=== PATIENT | female | born 1950 | race Caucasian/White ===

== ENCOUNTER 2021-04-29 03:55 | Observation (INO) ==
[2021-04-29] MEDS ORDERED: Naloxone 0.4 MG/ML INJ IVP PRN (10:43)
[2021-04-29] MEDS ORDERED: Pantoprazole 40 MG VIAL IVP SCH (10:45)
[2021-04-29 13:19] LABS: Basophils # 0.1 K/mcL (0.0-0.2); Basophils % 0.7 %; Eosinophils # 0.2 K/mcL (0.0-0.6); Eosinophils % 2.8 %; Hematocrit 38.5 % (35.3-44.9); Hemoglobin 12.5 g/dL (11.5-15.4); Immature Granulocytes % 0.5 % (0-4); Lymphocytes # 1.8 K/mcL (0.6-4.6); Lymphocytes % 21.3 %; Mean Corpuscular HGB Conc 32.5 g/dL (31.6-35.5); Mean Corpuscular Hemoglobin 32.6 pg (28.0-33.3); Mean Corpuscular Volume 100.5 fL (83.0-100.0); Monocytes # 0.6 K/mcL (0.0-1.3); Monocytes % 7.2 %; Neutrophils # 5.8 K/mcL (1.6-8.9); Platelet Count 343 K/mcL (140-400); Red Blood Count 3.83 M/mcL (3.82-4.97); Red Cell Distribution Width 12.8 % (11.5-14.5); Segmented Neutrophils % 67.5 %; White Blood Count 8.5 K/mcL (4.3-11.1)
[2021-04-29 13:26] LABS: INR 1.2; Prothrombin Time 14.3 Seconds (9.4-12.1)
[2021-04-29 13:48] LABS: Alanine Aminotransferase 8 Units/L (7-52); Albumin 3.9 g/dL (3.5-5.7); Albumin/Globulin Ratio 1.7 (1.1-2.2); Alkaline Phosphatase 53 Units/L (34-104); Aspartate Amino Transferase 11 Units/L (13-39); BUN/Creatinine Ratio 33 (6-26); Bilirubin,Total 0.3 mg/dL (0.3-1.0); Blood Urea Nitrogen 19 mg/dL (8-23); Calcium 8.5 mg/dL (8.6-10.3); Carbon Dioxide 24 mEq/L (23-29); Chloride 110 mEq/L (98-107); Globulin 2.3 g/dL (2.4-3.5); Glucose 91 mg/dL (70-105); Osmolality,Calculated 294 (280-300); Phosphorous 1.4 mg/dL (2.7-4.5); Potassium 3.2 mEq/L (3.5-5.1); Sodium 141 mEq/L (136-145); Total Protein 6.2 g/dL (6.4-8.9); eGFR For African Americans > 60 (> 60); eGFR For Non-African Americans > 60 (> 60)
[2021-04-29] MEDS ORDERED: QUEtiapine Fumarate 25 MG TABLET PO PRN (14:45)
[2021-04-29] MEDS ORDERED: Haloperidol Lactate 5 MG/ML VIAL IM PRN (14:45)
[2021-04-29] MEDS: Sucralfate 1 GM TABLET PO SCH ×2 (16:33→21:40)
[2021-04-29] MEDS ORDERED: Metoprolol XL (24 HR) Succ 50 MG TAB.ER.24H PO SCH (18:00)
[2021-04-29] MEDS ORDERED: NON-FORMULARY MEDICATION 1 EACH EACH (Pantoprazole Sodium [Protonix] 40 MG Tablet.Dr) PO SCH (21:00)
[2021-04-29] MEDS: Pantoprazole 40 MG VIAL IVP SCH (21:43)
[2021-04-30 06:30] LABS: Magnesium 2.1 mg/dL (1.6-2.6)
[2021-04-30 06:32] LABS: BUN/Creatinine Ratio 23 (6-26); Blood Urea Nitrogen 12 mg/dL (8-23); Calcium 8.7 mg/dL (8.6-10.3); Carbon Dioxide 22 mEq/L (23-29); Chloride 112 mEq/L (98-107); Glucose 93 mg/dL (70-105); Osmolality,Calculated 291 (280-300); Potassium 3.9 mEq/L (3.5-5.1); Sodium 141 mEq/L (136-145); eGFR For African Americans > 60 (> 60); eGFR For Non-African Americans > 60 (> 60)
[2021-04-30] MEDS: Sucralfate 1 GM TABLET PO SCH ×3 (07:41→17:21)
[2021-04-30] MEDS: Pantoprazole 40 MG VIAL IVP SCH (07:42)
[2021-04-30] MEDS ORDERED: Aspirin Enteric Coated 81 MG Tablet PO SCH (09:00)
[2021-04-30] MEDS ORDERED: amLODIPine 5 MG TABLET PO SCH (09:00)
[2021-04-30 14:17] VITALS: BP 133/75; PULSE 75; TEMP 98.2; O2SAT 99
[2021-04-30] MEDS ORDERED: *HR* Propofol 200 MG/20 ML VIAL IVP ONE (18:31)
[2021-04-30] MEDS ORDERED: Lidocaine -MPF 2% 5 ML VIAL SQ ONE (18:31)
== END 2021-04-30 18:32 | disposition home or self-care (01) ==
LOC: 3ANU → SUATTDRO 09:04
PROVIDERS: ADMIT Family Medicine; ATTEND General Practice
PROC: ENDOEBX (2021-04-30 15:20)

== ENCOUNTER 2021-05-17 13:13 | Observation (INO) ==
[2021-05-17] MEDS ORDERED: Naloxone 0.4 MG/ML INJ IVP PRN (18:39)
[2021-05-17] MEDS ORDERED: Ondansetron 4 MG/2 ML VIAL IVP PRN (18:39)
[2021-05-17 19:21] LABS: Basophils # 0.1 K/mcL (0.0-0.2); Basophils % 0.6 %; Eosinophils # 0.1 K/mcL (0.0-0.6); Eosinophils % 0.9 %; Hematocrit 41.9 % (35.3-44.9); Hemoglobin 13.5 g/dL (11.5-15.4); Immature Granulocytes % 0.7 % (0-4); Lymphocytes # 2.2 K/mcL (0.6-4.6); Mean Corpuscular HGB Conc 32.2 g/dL (31.6-35.5); Mean Corpuscular Hemoglobin 32.8 pg (28.0-33.3); Mean Corpuscular Volume 101.7 fL (83.0-100.0); Monocytes # 0.7 K/mcL (0.0-1.3); Monocytes % 7.6 %; Neutrophils # 6.5 K/mcL (1.6-8.9); Platelet Count 413 K/mcL (140-400); Red Blood Count 4.12 M/mcL (3.82-4.97); Red Cell Distribution Width 13.3 % (11.5-14.5); Segmented Neutrophils % 67.2 %; White Blood Count 9.7 K/mcL (4.3-11.1)
[2021-05-17 19:37] LABS: INR 1.1; Prothrombin Time 12.4 Seconds (9.4-12.1)
[2021-05-17 19:44] LABS: Alanine Aminotransferase 16 Units/L (7-52); Albumin 4.4 g/dL (3.5-5.7); Albumin/Globulin Ratio 1.5 (1.1-2.2); Alkaline Phosphatase 59 Units/L (34-104); Aspartate Amino Transferase 18 Units/L (13-39); BUN/Creatinine Ratio 26 (6-26); Bilirubin,Total 0.3 mg/dL (0.3-1.0); Blood Urea Nitrogen 19 mg/dL (8-23); Carbon Dioxide 22 mEq/L (23-29); Chloride 110 mEq/L (98-107); Globulin 2.9 g/dL (2.4-3.5); Glucose 89 mg/dL (70-105); Lipase 21 Units/L (11-82); Osmolality,Calculated 292 (280-300); Potassium 3.3 mEq/L (3.5-5.1); Sodium 140 mEq/L (136-145); Total Protein 7.3 g/dL (6.4-8.9); eGFR For African Americans > 60 (> 60); eGFR For Non-African Americans > 60 (> 60)
[2021-05-17] MEDS: 0.9 % Sodium Chloride 1,000 ML IVC SCH (23:00)
[2021-05-17] MEDS: MetroNIDAZOLE 500 MG/100 ML 500 MG/100 ML BAG IVPB SCH (23:52)
[2021-05-18] MEDS: Pantoprazole 40 MG VIAL IVP SCH ×2 (06:14→18:00)
[2021-05-18 08:03] LABS: Bilirubin,Urine Negative (Negative); Blood,Urine Moderate (Negative); Clarity,Urine Clear (Clear); Color,Urine Colorless (Yellow); Glucose,Urine (UA) Normal (Normal); Ketones,Urine Negative (Negative); Leukocyte Esterase,Urine Negative (Negative); Mucus,Urine Few per lpf (None-Few); Nitrite,Urine Negative (Negative); Protein,Urine Negative (Neg-Trace); RBC,Urine 0-3 per hpf (0-3); Specific Gravity,Urine 1.011 (1.010-1.025); Urobilinogen,Urine Normal (Normal); WBC,Urine 0-3 per hpf (0-3)
[2021-05-18] MEDS: Nicotine 21 MG PATCH.TD24 TD SCH (09:16)
[2021-05-18] MEDS: MetroNIDAZOLE 500 MG/100 ML 500 MG/100 ML BAG IVPB SCH ×2 (09:16→18:01)
[2021-05-18 09:41] LABS: Basophils # 0.1 K/mcL (0.0-0.2); Basophils % 0.8 %; Eosinophils # 0.1 K/mcL (0.0-0.6); Eosinophils % 2.3 %; Hematocrit 38.3 % (35.3-44.9); Hemoglobin 12.5 g/dL (11.5-15.4); Immature Granulocytes % 0.8 % (0-4); Lymphocytes # 1.3 K/mcL (0.6-4.6); Lymphocytes % 21.4 %; Mean Corpuscular HGB Conc 32.6 g/dL (31.6-35.5); Mean Corpuscular Hemoglobin 32.5 pg (28.0-33.3); Mean Corpuscular Volume 99.5 fL (83.0-100.0); Monocytes # 0.4 K/mcL (0.0-1.3); Monocytes % 6.3 %; Neutrophils # 4.1 K/mcL (1.6-8.9); Platelet Count 369 K/mcL (140-400); Red Blood Count 3.85 M/mcL (3.82-4.97); Red Cell Distribution Width 13.2 % (11.5-14.5); Segmented Neutrophils % 68.4 %
[2021-05-18] MEDS ORDERED: Morphine Sulfate 2 MG/ML SYRINGE IVP ONE (09:49)
[2021-05-18 10:00] LABS: BUN/Creatinine Ratio 22 (6-26); Blood Urea Nitrogen 11 mg/dL (8-23); Calcium 8.7 mg/dL (8.6-10.3); Carbon Dioxide 21 mEq/L (23-29); Chloride 112 mEq/L (98-107); Glucose 98 mg/dL (70-105); Osmolality,Calculated 291 (280-300); Potassium 3.4 mEq/L (3.5-5.1); Sodium 141 mEq/L (136-145); eGFR For African Americans > 60 (> 60); eGFR For Non-African Americans > 60 (> 60)
[2021-05-18] MEDS ORDERED: MOM Conc 10 ML UD.LIQ PO ONE (10:04)
[2021-05-18] MEDS ORDERED: *HR* LORazepam 2 MG/ML VIAL IVP ONE (11:45)
[2021-05-18 12:24] LABS: Thyroid Stimulating Hormone 0.484 mcIU/mL (0.340-5.600)
[2021-05-18] MEDS: *HR* LORazepam 2 MG/ML VIAL IVP PRN ×2 (12:46→21:52)
[2021-05-18] MEDS: Morphine Sulfate 2 MG/ML SYRINGE IVP PRN ×2 (12:46→18:25)
[2021-05-18] MEDS: 0.9 % Sodium Chloride 1,000 ML IVC SCH ×2 (12:50→21:52)
[2021-05-18 12:55] LABS: Troponin I < 0.03 ng/mL (< 0.04)
[2021-05-18] MEDS: Sucralfate 1 GM TABLET PO SCH ×3 (14:21→21:52)
[2021-05-19] MEDS: Morphine Sulfate 2 MG/ML SYRINGE IVP PRN ×3 (00:01→11:13)
[2021-05-19] MEDS: MetroNIDAZOLE 500 MG/100 ML 500 MG/100 ML BAG IVPB SCH ×2 (00:02→08:45)
[2021-05-19] MEDS: Pantoprazole 40 MG VIAL IVP SCH ×2 (05:56→17:28)
[2021-05-19 06:29] LABS: Basophils # 0.1 K/mcL (0.0-0.2); Basophils % 0.7 %; Eosinophils # 0.3 K/mcL (0.0-0.6); Eosinophils % 4.1 %; Hematocrit 38.4 % (35.3-44.9); Hemoglobin 12.5 g/dL (11.5-15.4); Immature Granulocytes % 0.3 % (0-4); Lymphocytes # 1.5 K/mcL (0.6-4.6); Lymphocytes % 20.5 %; Mean Corpuscular HGB Conc 32.6 g/dL (31.6-35.5); Mean Corpuscular Hemoglobin 32.6 pg (28.0-33.3); Monocytes # 0.7 K/mcL (0.0-1.3); Monocytes % 9.7 %; Neutrophils # 4.6 K/mcL (1.6-8.9); Platelet Count 364 K/mcL (140-400); Red Blood Count 3.84 M/mcL (3.82-4.97); Red Cell Distribution Width 13.1 % (11.5-14.5); Segmented Neutrophils % 64.7 %; White Blood Count 7.1 K/mcL (4.3-11.1)
[2021-05-19 06:41] LABS: BUN/Creatinine Ratio 10 (6-26); Blood Urea Nitrogen 5 mg/dL (8-23); Carbon Dioxide 27 mEq/L (23-29); Chloride 108 mEq/L (98-107); Glucose 104 mg/dL (70-105); Osmolality,Calculated 292 (280-300); Phosphorous 3.1 mg/dL (2.7-4.5); Potassium 3.1 mEq/L (3.5-5.1); Sodium 142 mEq/L (136-145); eGFR For African Americans > 60 (> 60); eGFR For Non-African Americans > 60 (> 60)
[2021-05-19] MEDS: amLODIPine 5 MG TABLET PO SCH (08:45)
[2021-05-19] MEDS: Metoprolol XL (24 HR) Succ 50 MG TAB.ER.24H PO SCH (08:45)
[2021-05-19] MEDS: Sucralfate 1 GM TABLET PO SCH ×4 (08:45→21:09)
[2021-05-19] MEDS: Nicotine 21 MG PATCH.TD24 TD SCH (08:47)
[2021-05-19] MEDS: 0.9 % Sodium Chloride 1,000 ML IVC SCH ×2 (11:57→23:57)
[2021-05-19] MEDS: Ondansetron 4 MG/2 ML VIAL IVP PRN ×2 (13:35→21:09)
[2021-05-19] MEDS ORDERED: GI Cocktail 40 ML EACH PO ONE (13:41)
[2021-05-19] MEDS: *HR* OxyCODONE Immed Rel 5 MG TABLET PO PRN (17:28)
[2021-05-19] MEDS: hydrOXYzine pamoate 25 MG CAPSULE PO PRN (21:09)
[2021-05-20] MEDS: Acetaminophen 325 MG TABLET PO PRN ×2 (00:09→07:39)
[2021-05-20 02:20] LABS: Basophils # 0.1 K/mcL (0.0-0.2); Basophils % 0.6 %; Eosinophils # 0.2 K/mcL (0.0-0.6); Hematocrit 36.2 % (35.3-44.9); Hemoglobin 12.3 g/dL (11.5-15.4); Immature Granulocytes % 0.3 % (0-4); Lymphocytes # 1.7 K/mcL (0.6-4.6); Lymphocytes % 20.8 %; Mean Corpuscular Hemoglobin 33.1 pg (28.0-33.3); Mean Corpuscular Volume 97.3 fL (83.0-100.0); Mean Platelet Volume 9.1 fL (9.4-12.4); Monocytes # 0.8 K/mcL (0.0-1.3); Monocytes % 10.5 %; Neutrophils # 5.2 K/mcL (1.6-8.9); Platelet Count 342 K/mcL (140-400); Red Blood Count 3.72 M/mcL (3.82-4.97); Red Cell Distribution Width 12.6 % (11.5-14.5); Segmented Neutrophils % 64.8 %
[2021-05-20] MEDS: *HR* OxyCODONE Immed Rel 5 MG TABLET PO PRN (02:35)
[2021-05-20 02:51] LABS: BUN/Creatinine Ratio 13 (6-26); Blood Urea Nitrogen 8 mg/dL (8-23); Calcium 8.9 mg/dL (8.6-10.3); Carbon Dioxide 25 mEq/L (23-29); Chloride 106 mEq/L (98-107); Glucose 107 mg/dL (70-105); Magnesium 2.2 mg/dL (1.6-2.6); Osmolality,Calculated 287 (280-300); Phosphorous 3.1 mg/dL (2.7-4.5); Potassium 3.3 mEq/L (3.5-5.1); Sodium 139 mEq/L (136-145); eGFR For African Americans > 60 (> 60); eGFR For Non-African Americans > 60 (> 60)
[2021-05-20] MEDS: Pantoprazole 40 MG VIAL IVP SCH (04:29)
[2021-05-20 07:10] VITALS: BP 142/88; PULSE 72; TEMP 98.2; O2SAT 98
[2021-05-20] MEDS: Sucralfate 1 GM TABLET PO SCH ×2 (07:36→10:52)
[2021-05-20] MEDS: Nicotine 21 MG PATCH.TD24 TD SCH (07:36)
[2021-05-20] MEDS: amLODIPine 5 MG TABLET PO SCH (07:37)
[2021-05-20] MEDS: Metoprolol XL (24 HR) Succ 50 MG TAB.ER.24H PO SCH (07:37)
[2021-05-20] MEDS: hydrOXYzine pamoate 25 MG CAPSULE PO PRN (09:09)
== END 2021-05-20 11:50 | disposition home or self-care (01) ==
LOC: 3BNU → SUATTDRO 16:30
PROVIDERS: ADMIT Internal Medicine; ATTEND Internal Medicine

== ENCOUNTER 2021-06-27 00:44 | Observation (INO) ==
[2021-06-27 02:24] LABS: Basophils # 0.1 K/mcL (0.0-0.2); Basophils % 0.5 %; Eosinophils # 0.2 K/mcL (0.0-0.6); Hematocrit 46.2 % (35.3-44.9); Hemoglobin 15.1 g/dL (11.5-15.4); Immature Granulocytes % 0.7 % (0-4); Lymphocytes # 1.7 K/mcL (0.6-4.6); Lymphocytes % 9.9 %; Mean Corpuscular HGB Conc 32.7 g/dL (31.6-35.5); Mean Corpuscular Hemoglobin 32.7 pg (28.0-33.3); Mean Platelet Volume 8.6 fL (9.4-12.4); Monocytes # 0.8 K/mcL (0.0-1.3); Monocytes % 4.5 %; Neutrophils # 13.9 K/mcL (1.6-8.9); Platelet Count 577 K/mcL (140-400); Red Blood Count 4.62 M/mcL (3.82-4.97); Red Cell Distribution Width 14.3 % (11.5-14.5); Segmented Neutrophils % 83.4 %; White Blood Count 16.7 K/mcL (4.3-11.1)
[2021-06-27 02:44] LABS: Bilirubin,Urine Negative (Negative); Blood,Urine Moderate (Negative); Clarity,Urine Clear (Clear); Color,Urine Yellow (Yellow); Glucose,Urine (UA) Normal (Normal); Hyaline Casts,Urine Few per lpf (None Seen); Ketones,Urine Negative (Negative); Leukocyte Esterase,Urine Negative (Negative); Mucus,Urine Few per lpf (None-Few); Nitrite,Urine Negative (Negative); Protein,Urine >=300 mg/dL (Neg-Trace); RBC,Urine 15-30 per hpf (0-3); Specific Gravity,Urine > 1.030 (1.010-1.025); Squamous Epithelial Cell,Urine Few per hpf (None-Few); Urobilinogen,Urine Normal (Normal)
[2021-06-27] MEDS ORDERED: Ondansetron 4 MG/2 ML VIAL IVP ONE (02:59)
[2021-06-27] MEDS ORDERED: Morphine Sulfate 2 MG/ML SYRINGE IVP STA (02:59)
[2021-06-27 03:09] LABS: Alanine Aminotransferase 11 Units/L (7-52); Albumin 4.7 g/dL (3.5-5.7); Albumin/Globulin Ratio 1.2 (1.1-2.2); Alkaline Phosphatase 70 Units/L (34-104); Aspartate Amino Transferase 38 Units/L (13-39); BUN/Creatinine Ratio 18 (6-26); Bilirubin,Indirect 0.3 mg/dL (0.0-1.0); Bilirubin,Total 0.3 mg/dL (0.3-1.0); Blood Urea Nitrogen 16 mg/dL (8-23); Calcium 9.5 mg/dL (8.6-10.3); Carbon Dioxide 19 mEq/L (23-29); Chloride 107 mEq/L (98-107); Globulin 3.9 g/dL (2.4-3.5); Glucose 108 mg/dL (70-105); Lipase 10 Units/L (11-82); Osmolality,Calculated 290 (280-300); Sodium 139 mEq/L (136-145); Total Protein 8.6 g/dL (6.4-8.9); eGFR For African Americans > 60 (> 60); eGFR For Non-African Americans > 60 (> 60)
[2021-06-27] MEDS ORDERED: Isovue-370 500 ML BOTTLE IVP ONE (03:33)
[2021-06-27] MEDS ORDERED: Morphine Sulfate 2 MG/ML SYRINGE IVP PRN (06:43)
[2021-06-27] MEDS ORDERED: Piperacillin/Tazobactam 3.375 GM in 0.9 % Sodium Chloride Mini Bag 100 ML IVPB ONE (08:02)
[2021-06-27] MEDS ORDERED: Pantoprazole 40 MG VIAL IVP ONE (08:02)
[2021-06-27] MEDS ORDERED: *HR* HYDROmorphone (PF) 1 MG/ML SYRINGE IVP STA (08:14)
[2021-06-27] MEDS ORDERED: Naloxone 0.4 MG/ML INJ IVP PRN (09:10)
[2021-06-27] MEDS ORDERED: Ondansetron 4 MG/2 ML VIAL IVP PRN (09:10)
[2021-06-27] MEDS ORDERED: 0.9 % Sodium Chloride 1,000 ML IVC SCH (09:15)
[2021-06-27 11:22] VITALS: TEMP 97.7
[2021-06-27] MEDS ORDERED: *HR* Propofol 200 MG/20 ML VIAL IVP ONE (14:51)
[2021-06-27] MEDS ORDERED: Lidocaine -MPF 2% 5 ML VIAL ONE (14:51)
[2021-06-27 15:10] VITALS: BP 106/60; PULSE 65; O2SAT 100
[2021-06-27] MEDS ORDERED: Pantoprazole 40 MG VIAL IVP SCH (18:00)
== END 2021-06-27 19:23 | disposition left against medical advice (07) ==
LOC: 3BNU 00:44 → EMEROOARM 00:44 → 3BNU 11:29
PROVIDERS: ADMIT General Practice; ATTEND General Practice

== ENCOUNTER 2021-07-02 20:36 | Inpatient (IN) ==
[2021-07-03] MEDS ORDERED: Naloxone 0.4 MG/ML INJ IVP PRN (00:04)
[2021-07-03 01:05] LABS: Hematocrit 24.5 % (35.3-44.9); Mean Corpuscular HGB Conc 32.7 g/dL (31.6-35.5); Mean Corpuscular Hemoglobin 32.7 pg (28.0-33.3); Mean Platelet Volume 8.9 fL (9.4-12.4); Platelet Count 327 K/mcL (140-400); Red Blood Count 2.45 M/mcL (3.82-4.97); Red Cell Distribution Width 13.8 % (11.5-14.5); White Blood Count 9.8 K/mcL (4.3-11.1)
[2021-07-03 01:27] LABS: BUN/Creatinine Ratio 61 (6-26); Blood Urea Nitrogen 33 mg/dL (8-23); Carbon Dioxide 28 mEq/L (23-29); Chloride 107 mEq/L (98-107); Glucose 101 mg/dL (70-105); Magnesium 1.8 mg/dL (1.6-2.6); Osmolality,Calculated 299 (280-300); Sodium 141 mEq/L (136-145); eGFR For African Americans > 60 (> 60); eGFR For Non-African Americans > 60 (> 60)
[2021-07-03 01:28] LABS: Alanine Aminotransferase 4 Units/L (7-52); Albumin 2.9 g/dL (3.5-5.7); Albumin/Globulin Ratio 1.3 (1.1-2.2); Alkaline Phosphatase 41 Units/L (34-104); Aspartate Amino Transferase 9 Units/L (13-39); BUN/Creatinine Ratio 62 (6-26); Bilirubin,Total 0.2 mg/dL (0.3-1.0); Blood Urea Nitrogen 33 mg/dL (8-23); Carbon Dioxide 27 mEq/L (23-29); Chloride 108 mEq/L (98-107); Globulin 2.2 g/dL (2.4-3.5); Glucose 98 mg/dL (70-105); Osmolality,Calculated 303 (280-300); Potassium 3.1 mEq/L (3.5-5.1); Sodium 143 mEq/L (136-145); Total Protein 5.1 g/dL (6.4-8.9); eGFR For African Americans > 60 (> 60); eGFR For Non-African Americans > 60 (> 60)
[2021-07-03] MEDS: Ondansetron 4 MG/2 ML VIAL IVP PRN ×2 (01:40→15:48)
[2021-07-03] MEDS ORDERED: Potassium Chloride 40 MEQ, Lidocaine 1% 2 ML in 0.9 % Sodium Chloride 500 ML IVPB ONE (02:00)
[2021-07-03] MEDS: Pantoprazole 40 MG in 0.9 % Sodium Chloride Mini Bag 100 ML IVC SCH ×4 (02:29→20:02)
[2021-07-03 05:00] LABS: Basophils # 0.1 K/mcL (0.0-0.2); Basophils % 0.5 %; Eosinophils # 0.1 K/mcL (0.0-0.6); Eosinophils % 1.5 %; Hemoglobin 7.5 g/dL (11.5-15.4); Immature Granulocytes % 0.5 % (0-4); Lymphocytes # 1.9 K/mcL (0.6-4.6); Lymphocytes % 19.8 %; Mean Corpuscular HGB Conc 32.6 g/dL (31.6-35.5); Mean Corpuscular Hemoglobin 32.9 pg (28.0-33.3); Mean Corpuscular Volume 100.9 fL (83.0-100.0); Monocytes # 0.8 K/mcL (0.0-1.3); Monocytes % 7.9 %; Neutrophils # 6.6 K/mcL (1.6-8.9); Platelet Count 320 K/mcL (140-400); Red Blood Count 2.28 M/mcL (3.82-4.97); Segmented Neutrophils % 69.8 %; White Blood Count 9.5 K/mcL (4.3-11.1)
[2021-07-03] MEDS ORDERED: 0.9 % Sodium Chloride 250 ML ONE (05:59)
[2021-07-03] MEDS ORDERED: Morphine Sulfate 2 MG/ML SYRINGE IVP ONE (09:06)
[2021-07-03] MEDS: *HR* Promethazine 25 MG/ML VIAL IM PRN ×2 (09:27→21:04)
[2021-07-03] MEDS ORDERED: Lidocaine -MPF 1% 5 ML AMPUL INFILT ONE (10:23)
[2021-07-03 11:39] LABS: Phosphorous 2.7 mg/dL (2.7-4.5)
[2021-07-03] MEDS ORDERED: D10% in Water 500 ML IVC PRN (12:44)
[2021-07-03] MEDS ORDERED: Chloraseptic Spray 177 ML BOTTLE MM PRN (12:58)
[2021-07-03] MEDS: Morphine PCA 30 MG/ 30 ML 30 ML PCA.VIAL IVC PRN (13:38)
[2021-07-03] MEDS: Ringers Solution, Lactated 1,000 ML IVC SCH ×2 (13:47→22:05)
[2021-07-03] MEDS: *HR* Metoprolol 5 MG/5 ML VIAL IVP SCH ×2 (13:51→18:15)
[2021-07-03 14:24] LABS: Hematocrit 27.5 % (35.3-44.9); Hemoglobin 8.9 g/dL (11.5-15.4); Mean Corpuscular HGB Conc 32.4 g/dL (31.6-35.5); Mean Corpuscular Hemoglobin 31.1 pg (28.0-33.3); Mean Corpuscular Volume 96.2 fL (83.0-100.0); Mean Platelet Volume 8.8 fL (9.4-12.4); Platelet Count 298 K/mcL (140-400); Red Blood Count 2.86 M/mcL (3.82-4.97); Red Cell Distribution Width 16.2 % (11.5-14.5); White Blood Count 8.6 K/mcL (4.3-11.1)
[2021-07-03 14:44] LABS: BUN/Creatinine Ratio 35 (6-26); Blood Urea Nitrogen 18 mg/dL (8-23); Carbon Dioxide 27 mEq/L (23-29); Chloride 110 mEq/L (98-107); Glucose 89 mg/dL (70-105); Osmolality,Calculated 299 (280-300); Potassium 3.3 mEq/L (3.5-5.1); Sodium 144 mEq/L (136-145); eGFR For African Americans > 60 (> 60); eGFR For Non-African Americans > 60 (> 60)
[2021-07-03] MEDS: Insulin LISPRO 300 UNITS/3 ML VIAL SUBQ SCH ×2 (16:45→20:59)
[2021-07-03] MEDS ORDERED: Clinimix E 5%-15% SOLUTION 2,000 ML with MVI, adult with vitamin K 10 ML IVC SCH (17:00)
[2021-07-04] MEDS: Insulin LISPRO 300 UNITS/3 ML VIAL SUBQ SCH ×6 (01:00→21:59)
[2021-07-04] MEDS: Ondansetron 4 MG/2 ML VIAL IVP PRN ×3 (01:06→19:39)
[2021-07-04] MEDS: *HR* Metoprolol 5 MG/5 ML VIAL IVP SCH ×4 (01:11→19:40)
[2021-07-04] MEDS: Pantoprazole 40 MG in 0.9 % Sodium Chloride Mini Bag 100 ML IVC SCH ×3 (01:15→11:31)
[2021-07-04 03:18] LABS: Basophils # 0.1 K/mcL (0.0-0.2); Basophils % 0.5 %; Eosinophils # 0.3 K/mcL (0.0-0.6); Eosinophils % 2.7 %; Hematocrit 26.8 % (35.3-44.9); Hemoglobin 8.8 g/dL (11.5-15.4); Immature Granulocytes % 0.5 % (0-4); Lymphocytes # 1.2 K/mcL (0.6-4.6); Lymphocytes % 10.9 %; Mean Corpuscular HGB Conc 32.8 g/dL (31.6-35.5); Mean Corpuscular Hemoglobin 32.2 pg (28.0-33.3); Mean Corpuscular Volume 98.2 fL (83.0-100.0); Mean Platelet Volume 8.9 fL (9.4-12.4); Monocytes # 0.5 K/mcL (0.0-1.3); Monocytes % 5.1 %; Neutrophils # 8.5 K/mcL (1.6-8.9); Platelet Count 275 K/mcL (140-400); Red Blood Count 2.73 M/mcL (3.82-4.97); Red Cell Distribution Width 16.1 % (11.5-14.5); Segmented Neutrophils % 80.3 %; White Blood Count 10.5 K/mcL (4.3-11.1)
[2021-07-04 03:31] LABS: BUN/Creatinine Ratio 21 (6-26); Blood Urea Nitrogen 10 mg/dL (8-23); Calcium 8.5 mg/dL (8.6-10.3); Carbon Dioxide 30 mEq/L (23-29); Chloride 106 mEq/L (98-107); Glucose 127 mg/dL (70-105); Magnesium 1.8 mg/dL (1.6-2.6); Osmolality,Calculated 291 (280-300); Phosphorous 3.4 mg/dL (2.7-4.5); Potassium 3.6 mEq/L (3.5-5.1); Sodium 140 mEq/L (136-145); eGFR For African Americans > 60 (> 60); eGFR For Non-African Americans > 60 (> 60)
[2021-07-04] MEDS: Ringers Solution, Lactated 1,000 ML IVC SCH ×2 (05:47→13:48)
[2021-07-04] MEDS: *HR* Promethazine 25 MG/ML VIAL IM PRN ×2 (06:28→13:48)
[2021-07-04] MEDS ORDERED: Clinimix E 5%-15% SOLUTION 2,000 ML with MVI, adult with vitamin K 10 ML IVC SCH (17:00)
[2021-07-04] MEDS: Morphine PCA 30 MG/ 30 ML 30 ML PCA.VIAL IVC PRN (17:20)
[2021-07-04] MEDS: Pantoprazole 40 MG VIAL IVP SCH (19:40)
[2021-07-04] MEDS ORDERED: Ringers Solution, Lactated 1,000 ML ONE (22:05)
[2021-07-04] MEDS ORDERED: 0.9 % Sodium Chloride 1,000 ML IVC SCH (22:15)
[2021-07-05] MEDS: Insulin LISPRO 300 UNITS/3 ML VIAL SUBQ SCH ×5 (02:39→20:35)
[2021-07-05] MEDS: *HR* Metoprolol 5 MG/5 ML VIAL IVP SCH ×3 (02:39→12:35)
[2021-07-05] MEDS: Morphine PCA 30 MG/ 30 ML 30 ML PCA.VIAL IVC PRN ×2 (02:42→21:32)
[2021-07-05 06:44] LABS: Basophils % 0.2 %; Eosinophils # 0.3 K/mcL (0.0-0.6); Eosinophils % 2.7 %; Hematocrit 22.8 % (35.3-44.9); Hemoglobin 7.2 g/dL (11.5-15.4); Immature Granulocytes % 0.3 % (0-4); Lymphocytes % 10.7 %; Mean Corpuscular HGB Conc 31.6 g/dL (31.6-35.5); Mean Corpuscular Hemoglobin 31.2 pg (28.0-33.3); Mean Corpuscular Volume 98.7 fL (83.0-100.0); Monocytes # 0.6 K/mcL (0.0-1.3); Monocytes % 6.4 %; Neutrophils # 7.6 K/mcL (1.6-8.9); Platelet Count 252 K/mcL (140-400); Red Blood Count 2.31 M/mcL (3.82-4.97); Red Cell Distribution Width 15.1 % (11.5-14.5); Segmented Neutrophils % 79.7 %; White Blood Count 9.5 K/mcL (4.3-11.1)
[2021-07-05] MEDS: Pantoprazole 40 MG VIAL IVP SCH (06:52)
[2021-07-05 07:03] LABS: BUN/Creatinine Ratio 39 (6-26); Blood Urea Nitrogen 18 mg/dL (8-23); Calcium 8.4 mg/dL (8.6-10.3); Carbon Dioxide 30 mEq/L (23-29); Chloride 101 mEq/L (98-107); Glucose 125 mg/dL (70-105); Magnesium 1.7 mg/dL (1.6-2.6); Osmolality,Calculated 289 (280-300); Phosphorous 4.1 mg/dL (2.7-4.5); Potassium 3.5 mEq/L (3.5-5.1); Sodium 138 mEq/L (136-145); eGFR For African Americans > 60 (> 60); eGFR For Non-African Americans > 60 (> 60)
[2021-07-05] MEDS ORDERED: *HR* HYDROmorphone PF 0.5 MG/0.5 ML SYRINGE IVP PRN (08:15)
[2021-07-05] MEDS ORDERED: Ondansetron 4 MG/2 ML VIAL IVP PRN (08:15)
[2021-07-05] MEDS ORDERED: 0.9 % Sodium Chloride 250 ML IVC SCH ×2 (08:45→18:54)
[2021-07-05] MEDS: Ondansetron 4 MG/2 ML VIAL IVP PRN (09:18)
[2021-07-05] MEDS: *HR* Promethazine 25 MG/ML VIAL IM PRN (15:00)
[2021-07-05] MEDS ORDERED: Ondansetron 4 MG/2 ML VIAL ONE (15:02)
[2021-07-05] MEDS ORDERED: Lidocaine -MPF 2% 5 ML VIAL ONE (15:02)
[2021-07-05] MEDS ORDERED: *HR* Rocuronium Bromide 50 MG/5 ML VIAL ONE (15:02)
[2021-07-05] MEDS ORDERED: *HR* FentaNYL (PF) 100 MCG/2 ML VIAL ONE ×2 (15:33→16:56)
[2021-07-05] MEDS ORDERED: *HR* Propofol 200 MG/20 ML VIAL IVP ONE (15:33)
[2021-07-05] MEDS ORDERED: Albumin Human 5% 12.5 GM/250 ML IV.SOLN ONE ×2 (15:36→15:38)
[2021-07-05] MEDS ORDERED: *HR* Vasopressin 20 UNIT/ML VIAL ONE (15:36)
[2021-07-05] MEDS ORDERED: Lidocaine HCL 4 ML Topical Solution (Laryng-O-Jet Kit Sterile Pak) TP ONE (16:11)
[2021-07-05] MEDS ORDERED: CefOXitin 2,000 MG VIAL ONE (16:25)
[2021-07-05] MEDS ORDERED: Clinimix E 5%-15% SOLUTION 2,000 ML with MVI, adult with vitamin K 10 ML IVC SCH ×2 (17:00→18:54)
[2021-07-05] MEDS ORDERED: Sugammadex Sodium 200 MG/2 ML VIAL IV ONE (17:42)
[2021-07-05] MEDS ORDERED: *HR* Labetalol 20 MG/4 ML SYRINGE IVP ONE (18:01)
[2021-07-05] MEDS ORDERED: Chloraseptic Spray 177 ML BOTTLE MM PRN (18:54)
[2021-07-05] MEDS ORDERED: *HR* Promethazine 25 MG/ML VIAL IM PRN (18:54)
[2021-07-05] MEDS ORDERED: D10% in Water 500 ML IVC PRN (18:54)
[2021-07-05] MEDS ORDERED: Naloxone 0.4 MG/ML INJ IVP PRN (18:54)
[2021-07-05] MEDS: 0.9 % Sodium Chloride 1,000 ML IVC SCH (20:02)
[2021-07-06] MEDS: *HR* Metoprolol 5 MG/5 ML VIAL IVP SCH ×4 (03:37→17:17)
[2021-07-06] MEDS: Insulin LISPRO 300 UNITS/3 ML VIAL SUBQ SCH ×6 (03:40→21:33)
[2021-07-06 04:48] LABS: Basophils % 0.1 %; Hematocrit 22.1 % (35.3-44.9); Immature Granulocytes % 0.4 % (0-4); Lymphocytes # 0.5 K/mcL (0.6-4.6); Lymphocytes % 4.4 %; Mean Corpuscular HGB Conc 31.7 g/dL (31.6-35.5); Mean Corpuscular Volume 97.8 fL (83.0-100.0); Mean Platelet Volume 9.5 fL (9.4-12.4); Monocytes # 0.7 K/mcL (0.0-1.3); Monocytes % 5.3 %; Neutrophils # 11.1 K/mcL (1.6-8.9); Platelet Count 236 K/mcL (140-400); Red Blood Count 2.26 M/mcL (3.82-4.97); Red Cell Distribution Width 15.2 % (11.5-14.5); Segmented Neutrophils % 89.8 %; White Blood Count 12.3 K/mcL (4.3-11.1)
[2021-07-06 05:00] LABS: BUN/Creatinine Ratio 39 (6-26); Blood Urea Nitrogen 17 mg/dL (8-23); Calcium 8.3 mg/dL (8.6-10.3); Carbon Dioxide 29 mEq/L (23-29); Chloride 104 mEq/L (98-107); Glucose 181 mg/dL (70-105); Magnesium 1.8 mg/dL (1.6-2.6); Osmolality,Calculated 292 (280-300); Phosphorous 2.9 mg/dL (2.7-4.5); Potassium 3.9 mEq/L (3.5-5.1); Sodium 138 mEq/L (136-145); eGFR For African Americans > 60 (> 60); eGFR For Non-African Americans > 60 (> 60)
[2021-07-06] MEDS: Pantoprazole 40 MG VIAL IVP SCH ×2 (05:09→17:16)
[2021-07-06] MEDS: Morphine PCA 30 MG/ 30 ML 30 ML PCA.VIAL IVC PRN ×2 (07:04→16:16)
[2021-07-06] MEDS ORDERED: 0.9 % Sodium Chloride 250 ML IVC SCH (07:45)
[2021-07-06] MEDS: Ondansetron 4 MG/2 ML VIAL IVP PRN (13:24)
[2021-07-06] MEDS ORDERED: Clinimix E 5%-15% SOLUTION 2,000 ML with MVI, adult with vitamin K 10 ML IVC SCH ×2 (17:00)
[2021-07-07] MEDS: Insulin LISPRO 300 UNITS/3 ML VIAL SUBQ SCH ×6 (00:40→21:04)
[2021-07-07] MEDS: *HR* Metoprolol 5 MG/5 ML VIAL IVP SCH ×4 (00:44→17:22)
[2021-07-07] MEDS: Morphine PCA 30 MG/ 30 ML 30 ML PCA.VIAL IVC PRN ×2 (01:36→12:23)
[2021-07-07] MEDS: Pantoprazole 40 MG VIAL IVP SCH ×2 (05:36→17:22)
[2021-07-07 06:19] LABS: Basophils % 0.3 %; Eosinophils # 0.2 K/mcL (0.0-0.6); Eosinophils % 1.4 %; Immature Granulocytes % 0.5 % (0-4); Lymphocytes # 1.2 K/mcL (0.6-4.6); Lymphocytes % 9.9 %; Mean Corpuscular HGB Conc 32.1 g/dL (31.6-35.5); Mean Corpuscular Hemoglobin 30.9 pg (28.0-33.3); Mean Corpuscular Volume 96.2 fL (83.0-100.0); Mean Platelet Volume 9.3 fL (9.4-12.4); Monocytes # 1.1 K/mcL (0.0-1.3); Monocytes % 9.4 %; Neutrophils # 9.3 K/mcL (1.6-8.9); Platelet Count 259 K/mcL (140-400); Red Blood Count 2.91 M/mcL (3.82-4.97); Red Cell Distribution Width 15.9 % (11.5-14.5); Segmented Neutrophils % 78.5 %; White Blood Count 11.9 K/mcL (4.3-11.1)
[2021-07-07 06:39] LABS: BUN/Creatinine Ratio 50 (6-26); Blood Urea Nitrogen 17 mg/dL (8-23); Calcium 8.3 mg/dL (8.6-10.3); Carbon Dioxide 32 mEq/L (23-29); Chloride 103 mEq/L (98-107); Glucose 100 mg/dL (70-105); Magnesium 1.9 mg/dL (1.6-2.6); Osmolality,Calculated 290 (280-300); Phosphorous 3.6 mg/dL (2.7-4.5); Sodium 139 mEq/L (136-145); Transferrin 173 mg/dL (203-362); eGFR For African Americans > 60 (> 60); eGFR For Non-African Americans > 60 (> 60)
[2021-07-07 06:57] LABS: Ferritin 22 ng/mL (10-120)
[2021-07-07] MEDS: 0.9 % Sodium Chloride 1,000 ML IVC SCH ×2 (07:57→12:33)
[2021-07-07 08:00] LABS: Folate 8.2 ng/mL (3.0-16.0)
[2021-07-07 09:02] LABS: % Iron Saturation 6 % (15-50); Iron 15 mcg/dL (50-170)
[2021-07-07] MEDS: Ondansetron 4 MG/2 ML VIAL IVP PRN ×2 (09:52→17:55)
[2021-07-07] MEDS: Ipratropium/Albuterol Neb 3 ML IH SCH ×3 (11:04→19:42)
[2021-07-07] MEDS: Acetaminophen IV 1,000 MG/100 ML BAG IVPB SCH ×2 (12:30→17:23)
[2021-07-07] MEDS ORDERED: Clinimix E 5%-15% SOLUTION 2,000 ML with MVI, adult with vitamin K 10 ML IVC SCH (17:00)
[2021-07-08] MEDS: Insulin LISPRO 300 UNITS/3 ML VIAL SUBQ SCH ×6 (00:31→21:54)
[2021-07-08] MEDS: Acetaminophen IV 1,000 MG/100 ML BAG IVPB SCH ×4 (00:42→17:19)
[2021-07-08] MEDS: *HR* Metoprolol 5 MG/5 ML VIAL IVP SCH ×4 (00:43→17:16)
[2021-07-08 01:12] LABS: Basophils % 0.2 %; Eosinophils # 0.3 K/mcL (0.0-0.6); Eosinophils % 2.3 %; Hematocrit 27.5 % (35.3-44.9); Hemoglobin 8.7 g/dL (11.5-15.4); Immature Granulocytes % 0.6 % (0-4); Lymphocytes # 0.9 K/mcL (0.6-4.6); Mean Corpuscular HGB Conc 31.6 g/dL (31.6-35.5); Mean Corpuscular Hemoglobin 30.6 pg (28.0-33.3); Mean Corpuscular Volume 96.8 fL (83.0-100.0); Mean Platelet Volume 9.4 fL (9.4-12.4); Monocytes # 1.2 K/mcL (0.0-1.3); Monocytes % 10.1 %; Neutrophils # 9.7 K/mcL (1.6-8.9); Platelet Count 289 K/mcL (140-400); Red Blood Count 2.84 M/mcL (3.82-4.97); Red Cell Distribution Width 15.4 % (11.5-14.5); Segmented Neutrophils % 79.8 %; White Blood Count 12.1 K/mcL (4.3-11.1)
[2021-07-08 01:30] LABS: BUN/Creatinine Ratio 43 (6-26); Blood Urea Nitrogen 15 mg/dL (8-23); Calcium 8.4 mg/dL (8.6-10.3); Carbon Dioxide 30 mEq/L (23-29); Chloride 104 mEq/L (98-107); Glucose 118 mg/dL (70-105); Magnesium 1.9 mg/dL (1.6-2.6); Osmolality,Calculated 288 (280-300); Phosphorous 4.1 mg/dL (2.7-4.5); Potassium 3.5 mEq/L (3.5-5.1); Sodium 138 mEq/L (136-145); eGFR For African Americans > 60 (> 60); eGFR For Non-African Americans > 60 (> 60)
[2021-07-08] MEDS: Ipratropium/Albuterol Neb 3 ML IH SCH ×4 (04:07→20:10)
[2021-07-08] MEDS: Pantoprazole 40 MG VIAL IVP SCH ×2 (05:31→17:16)
[2021-07-08] MEDS: 0.9 % Sodium Chloride 1,000 ML IVC SCH (07:35)
[2021-07-08] MEDS: Morphine PCA 30 MG/ 30 ML 30 ML PCA.VIAL IVC PRN (09:30)
[2021-07-08] MEDS: *HR* LORazepam 2 MG/ML VIAL IVP PRN (14:00)
[2021-07-08] MEDS ORDERED: Clinimix E 5%-15% SOLUTION 2,000 ML with MVI, adult with vitamin K 10 ML IVC SCH (17:00)
[2021-07-09] MEDS: *HR* Metoprolol 5 MG/5 ML VIAL IVP SCH ×5 (00:38→23:17)
[2021-07-09] MEDS: Insulin LISPRO 300 UNITS/3 ML VIAL SUBQ SCH ×7 (00:40→23:15)
[2021-07-09] MEDS: Acetaminophen IV 1,000 MG/100 ML BAG IVPB SCH ×5 (00:48→23:30)
[2021-07-09] MEDS: Ipratropium/Albuterol Neb 3 ML IH SCH ×4 (03:47→20:16)
[2021-07-09] MEDS: Pantoprazole 40 MG VIAL IVP SCH ×2 (05:09→17:11)
[2021-07-09 06:19] LABS: Basophils # 0.1 K/mcL (0.0-0.2); Basophils % 0.4 %; Eosinophils # 0.3 K/mcL (0.0-0.6); Eosinophils % 1.9 %; Lymphocytes # 1.2 K/mcL (0.6-4.6); Lymphocytes % 8.4 %; Mean Corpuscular HGB Conc 32.1 g/dL (31.6-35.5); Mean Corpuscular Hemoglobin 31.4 pg (28.0-33.3); Mean Corpuscular Volume 97.6 fL (83.0-100.0); Mean Platelet Volume 9.5 fL (9.4-12.4); Monocytes # 1.5 K/mcL (0.0-1.3); Monocytes % 10.8 %; Neutrophils # 10.7 K/mcL (1.6-8.9); Nucleated Red Blood Cells 0.1 /100 WBC (0); Platelet Count 371 K/mcL (140-400); Red Blood Count 2.87 M/mcL (3.82-4.97); Red Cell Distribution Width 15.9 % (11.5-14.5); Segmented Neutrophils % 77.5 %; White Blood Count 13.9 K/mcL (4.3-11.1)
[2021-07-09] MEDS: *HR* LORazepam 2 MG/ML VIAL IVP PRN ×2 (06:27→16:20)
[2021-07-09 06:35] LABS: BUN/Creatinine Ratio 40 (6-26); Blood Urea Nitrogen 16 mg/dL (8-23); Calcium 8.8 mg/dL (8.6-10.3); Carbon Dioxide 29 mEq/L (23-29); Chloride 104 mEq/L (98-107); Glucose 100 mg/dL (70-105); Osmolality,Calculated 291 (280-300); Phosphorous 4.5 mg/dL (2.7-4.5); Potassium 3.7 mEq/L (3.5-5.1); Sodium 140 mEq/L (136-145); eGFR For African Americans > 60 (> 60); eGFR For Non-African Americans > 60 (> 60)
[2021-07-09] MEDS ORDERED: Clinimix E 5%-15% SOLUTION 2,000 ML with MVI, adult with vitamin K 10 ML IVC SCH (17:00)
[2021-07-09] MEDS: Ondansetron 4 MG/2 ML VIAL IVP PRN (18:40)
[2021-07-09] MEDS ORDERED: Ipratropium/Albuterol Neb 3 ML IH PRN (21:26)
[2021-07-10] MEDS: *HR* LORazepam 2 MG/ML VIAL IVP PRN ×2 (03:21→12:34)
[2021-07-10] MEDS: Insulin LISPRO 300 UNITS/3 ML VIAL SUBQ SCH ×5 (04:42→20:21)
[2021-07-10] MEDS: *HR* Metoprolol 5 MG/5 ML VIAL IVP SCH ×3 (05:36→17:30)
[2021-07-10] MEDS: Pantoprazole 40 MG VIAL IVP SCH ×2 (05:37→18:05)
[2021-07-10] MEDS: Acetaminophen IV 1,000 MG/100 ML BAG IVPB SCH ×2 (05:45→12:29)
[2021-07-10 06:42] LABS: Basophils # 0.1 K/mcL (0.0-0.2); Basophils % 0.6 %; Eosinophils # 0.5 K/mcL (0.0-0.6); Eosinophils % 4.9 %; Hematocrit 28.1 % (35.3-44.9); Immature Granulocytes % 1.4 % (0-4); Lymphocytes % 9.9 %; Mean Corpuscular Hemoglobin 31.7 pg (28.0-33.3); Mean Corpuscular Volume 98.9 fL (83.0-100.0); Mean Platelet Volume 9.2 fL (9.4-12.4); Monocytes # 1.1 K/mcL (0.0-1.3); Monocytes % 10.5 %; Neutrophils # 7.3 K/mcL (1.6-8.9); Nucleated Red Blood Cells 0.2 /100 WBC (0); Platelet Count 442 K/mcL (140-400); Red Blood Count 2.84 M/mcL (3.82-4.97); Red Cell Distribution Width 15.9 % (11.5-14.5); Segmented Neutrophils % 72.7 %; White Blood Count 10.1 K/mcL (4.3-11.1)
[2021-07-10 07:25] LABS: BUN/Creatinine Ratio 41 (6-26); Blood Urea Nitrogen 19 mg/dL (8-23); Calcium 8.7 mg/dL (8.6-10.3); Carbon Dioxide 28 mEq/L (23-29); Chloride 105 mEq/L (98-107); Glucose 89 mg/dL (70-105); Magnesium 1.9 mg/dL (1.6-2.6); Osmolality,Calculated 290 (280-300); Phosphorous 4.7 mg/dL (2.7-4.5); Potassium 4.3 mEq/L (3.5-5.1); Sodium 139 mEq/L (136-145); Triglycerides 83 mg/dL (< 150); eGFR For African Americans > 60 (> 60); eGFR For Non-African Americans > 60 (> 60)
[2021-07-10] MEDS ORDERED: Metoprolol XL (24 HR) Succ 50 MG TAB.ER.24H PO SCH (09:00)
[2021-07-10] MEDS: amLODIPine 5 MG TABLET PO SCH (09:54)
[2021-07-10] MEDS: polyethylene glycoL 3350 17 GM POWD.PACK PO SCH ×2 (09:54→20:23)
[2021-07-10] MEDS: Nicotine 14 MG PATCH.TD24 TD SCH (09:54)
[2021-07-10] MEDS: Bisacodyl 10 MG RECTAL SUPPOSITORY RC SCH (12:35)
[2021-07-10] MEDS ORDERED: Clinimix 5%-20% SOLUTION 2,000 ML with MVI, adult with vitamin K 10 ML, Sodium Phosph... IVC SCH (17:00)
[2021-07-11] MEDS: Insulin LISPRO 300 UNITS/3 ML VIAL SUBQ SCH ×5 (01:23→16:19)
[2021-07-11] MEDS: *HR* Metoprolol 5 MG/5 ML VIAL IVP SCH ×2 (01:29→05:14)
[2021-07-11] MEDS: Pantoprazole 40 MG VIAL IVP SCH ×2 (05:18→17:21)
[2021-07-11] MEDS: polyethylene glycoL 3350 17 GM POWD.PACK PO SCH ×2 (09:02→21:43)
[2021-07-11] MEDS: Metoprolol XL (24 HR) Succ 50 MG TAB.ER.24H PO SCH (09:03)
[2021-07-11] MEDS: amLODIPine 5 MG TABLET PO SCH (09:03)
[2021-07-11] MEDS: Bisacodyl 10 MG RECTAL SUPPOSITORY RC SCH (09:04)
[2021-07-11] MEDS: Nicotine 14 MG PATCH.TD24 TD SCH (09:05)
[2021-07-11 09:45] LABS: Basophils # 0.1 K/mcL (0.0-0.2); Basophils % 0.6 %; Eosinophils # 0.5 K/mcL (0.0-0.6); Eosinophils % 5.1 %; Hematocrit 31.4 % (35.3-44.9); Immature Granulocytes % 2.1 % (0-4); Lymphocytes # 1.2 K/mcL (0.6-4.6); Lymphocytes % 13.2 %; Mean Corpuscular HGB Conc 31.8 g/dL (31.6-35.5); Mean Corpuscular Hemoglobin 31.3 pg (28.0-33.3); Mean Corpuscular Volume 98.4 fL (83.0-100.0); Mean Platelet Volume 9.3 fL (9.4-12.4); Monocytes % 11.7 %; Platelet Count 514 K/mcL (140-400); Red Blood Count 3.19 M/mcL (3.82-4.97); Red Cell Distribution Width 15.9 % (11.5-14.5); Segmented Neutrophils % 67.3 %; White Blood Count 8.8 K/mcL (4.3-11.1)
[2021-07-11 10:03] LABS: BUN/Creatinine Ratio 47 (6-26); Blood Urea Nitrogen 21 mg/dL (8-23); Calcium 9.2 mg/dL (8.6-10.3); Carbon Dioxide 28 mEq/L (23-29); Chloride 103 mEq/L (98-107); Glucose 83 mg/dL (70-105); Magnesium 1.9 mg/dL (1.6-2.6); Osmolality,Calculated 288 (280-300); Phosphorous 4.3 mg/dL (2.7-4.5); Potassium 4.1 mEq/L (3.5-5.1); Sodium 138 mEq/L (136-145); eGFR For African Americans > 60 (> 60); eGFR For Non-African Americans > 60 (> 60)
[2021-07-11] MEDS: Ondansetron 4 MG/2 ML VIAL IVP PRN (14:02)
[2021-07-12] MEDS: Ondansetron 4 MG/2 ML VIAL IVP PRN (05:02)
[2021-07-12] MEDS: Pantoprazole 40 MG VIAL IVP SCH (05:31)
[2021-07-12] MEDS: Bisacodyl 10 MG RECTAL SUPPOSITORY RC SCH (09:14)
[2021-07-12] MEDS: Nicotine 14 MG PATCH.TD24 TD SCH (09:14)
[2021-07-12] MEDS: polyethylene glycoL 3350 17 GM POWD.PACK PO SCH (09:14)
[2021-07-12] MEDS: Metoprolol XL (24 HR) Succ 50 MG TAB.ER.24H PO SCH (09:16)
[2021-07-12] MEDS: amLODIPine 5 MG TABLET PO SCH (09:16)
[2021-07-12 11:46] VITALS: BP 112/66; PULSE 73; TEMP 98.1; O2SAT 96
[2021-07-12] MEDS ORDERED: *HR* LORazepam 2 MG/ML VIAL IVP ONE (14:19)
== END 2021-07-12 15:02 | disposition home or self-care (01) | DRG 326 ==
LOC: 3ANU → SUATTDRO 22:54
PROVIDERS: ADMIT Family Medicine; ATTEND Pharmacist